=== PATIENT | male | born 1990 | race Caucasian/White ===

== ENCOUNTER 2022-04-27 16:37 | Emergency (ER) | payer SELFPAY ==
[~2022-04-27] VITALS: Ht 162.6 cm; Wt 96.6 kg
[2022-04-27 16:39] VITALS: BP 128/73
--- NOTE | 2022-04-27 16:48 | NUR ---
PATIENT AMBULATED TO BED 8.
--- NOTE | 2022-04-27 17:02 | NUR ---
X-RAY AT BEDSIDE.
--- NOTE | 2022-04-27 17:06 | NUR ---
31 Y/O M BIB SELF C/O LEFT WRIST/HAND PAIN 03/27 , LEFT KNEE ABRASION WOUND S/P FALL X TODAY. DENIES LOC. DENIES HITTING HIS HEAD. [facility] OR [facility]
[2022-04-27] MEDS ORDERED: IBUP-2213 PO (17:34)
[2022-04-27] MEDS ORDERED: KETOROLAC 30 MG/ML VIAL IM ONE (17:35)
--- NOTE | 2022-04-27 18:04 | NUR ---
Placed a thumb spica splint on pt's left hand. CMS intact before and after splint placement. MELBA Donnelly made aware that splint has been completed and ready for inspection.
[2022-04-27 18:11] VITALS: BP 145/111
--- NOTE | 2022-04-27 18:12 | NUR ---
Patient discharged with v/s stable. Written and verbal after care instructions ABOUT METACARPAL FRACTURE given and explained. Patient alert, oriented and verbalized understanding of instructions. Ambulatory with steady gait. All questions addressed prior to discharge. ID band removed. Patient advised to follow up with PMD. Rx of IBUPROFEN given. Patient educated on indication of medication including possible reaction and side effects. Opportunity to ask questions provided and answered.
== END 2022-04-27 18:12 | disposition home or self-care (01) ==
LOC: MED 16:37
DX: S62.232A Other displaced fracture of base of first metacarpal bone, left hand, initial encounter for closed fracture (principal); W18.30XA Fall on same level, unspecified, initial encounter; Y93.89 Activity, other specified; Y92.89 Other specified places as the place of occurrence of the external cause; Y99.8 Other external cause status
CPT/HCPCS: 29125; 73110; 73130; 96372; 99284; J1885